=== PATIENT | male | born 1990 | race American Indian/Alaskan Native ===

== ENCOUNTER 2018-10-26 22:15 | Emergency (ER) | payer SELFPAY ==
[2018-10-26 22:35] VITALS: O2SAT 99
--- NOTE | 2018-10-26 23:50 | C.PDOC ---
History Of Present Illness 27 year old male presents to the ER with a complaint of left dental pain and left facial pain. Patient believes the tooth is infected, states he is scheduled for a removal of left broken molar on 11/13/18, he has been taking OTC pain medication but states the pain has worsened. Denies fever or tooth discharge. Time Seen by Provider: 10/26/18 22:41 Chief Complaint (Nursing): Dental Pain History Per: Patient History/Exam Limitations: no limitations Onset/Duration Of Symptoms: Days Current Symptoms Are (Timing): Still Present Recent travel outside of the [place]: No Past Medical History Reviewed: Historical Data, Nursing Documentation, Vital Signs Vital Signs: Last Vital Signs Temp 97.9 F 10/26/18 22:32 Pulse 72 10/26/18 22:32 Resp 18 10/26/18 22:32 BP 147/81 10/26/18 22:32 Pulse Ox 99 10/26/18 22:32 Family History: States: Unknown Family Hx - Social History Hx Alcohol Use: Yes Hx Substance Use: No - Immunization History Hx Tetanus Toxoid Vaccination: No Hx Influenza Vaccination: No Hx Pneumococcal Vaccination: No Review Of Systems Constitutional: Negative for: Fever ENT: Positive for: Mouth Pain. Negative for: Mouth Swelling Musculoskeletal: Positive for: Other (Left facial pain) Physical Exam - Physical Exam Appears: Non-toxic Skin: Normal Color, Warm, Dry Head: Atraumatic, Normacephalic, No Swelling (Facial) Eye(s): bilateral: Normal Inspection Nose: Normal Oral Mucosa: Moist Teeth: Tender To Palpation (left lower posterior), Other (Left posterior lower molar impacted with decaying root embedded in gum) Gingiva: Normal Appearing, Erythema (left lower posterior), No Swelling, No Abscess Throat: Normal, No Erythema, No Other (Swelling) Neck: Normal, Supple, No Other (Swelling) Neurological/Psych: Oriented x3, Normal Speech ED Course And Treatment O2 Sat by Pulse Oximetry: 99 (Room air) Pulse Ox Interpretation: Normal Progress Note: Motrin and penicillin administered. Patient is resting comfortably in the ER in no acute distress, vitals are stable, will discharge home with Rx and instructions to follow up with dentist as scheduled or return if symptoms worsen. Disposition - Disposition Referrals: Non [facility] Provider, [Primary Care Provider] - Disposition: HOME/ ROUTINE Disposition Time: 23:45 Condition: STABLE Additional Instructions: Please follow up with PMD/ Dentist as scheduled Take medications as directed Return to ER if worse Prescriptions: Ibuprofen [Motrin Tab] 800 mg PO QID #30 tab Penicillin VK [Penicillin VK Tab] 500 mg PO Q6 #28 tab Instructions: Tooth Decay, Adult (DC), Dental Pain (DC) Forms: [facility] (Irish) - Clinical Impression Clinical Impression: Dental caries - PA / COMMUNITY AFFAIRS DIRECTOR / Resident Statement MD/DO has reviewed & agrees with the documentation as recorded. - Scribe Statement The provider has reviewed the documentation as recorded by the Scribphillip Kinney All medical record entries made by the Nettie were at my direction and personally dictated by me. I have reviewed the chart and agree that the record accurately reflects my personal performance of the history, physical exam, medical decision making, and the department course for this patient. I have also personally directed, reviewed, and agree with the discharge instructions and disposition.
[2018-10-26 23:58] VITALS: BP 138/78; PULSE 84; RESP 14; TEMP 98
== END 2018-10-26 23:58 | disposition home or self-care (01) ==
LOC: C.ER 22:15 → SUPCPDRO 22:15 → C.ER 23:58
DX: K02.9 Dental caries, unspecified (principal)

== ENCOUNTER 2018-11-21 19:25 | Emergency (ER) | payer SELFPAY ==
[2018-11-21 19:31] VITALS: BP 124/81; PULSE 69; RESP 20; TEMP 98; O2SAT 99
--- NOTE | 2018-11-21 21:16 | C.PDOC ---
History Of Present Illness 28 y/o male with left lower dental pain that radiates to his ear and shoulder for months, seen for same recenty in ed and txed with pcn and motrin, did not follow [facility] dentist, returns to er for same. Time Seen by Provider: 11/21/18 19:42 Chief Complaint (Nursing): Dental Pain History Per: Patient History/Exam Limitations: no limitations Current Symptoms Are (Timing): Still Present Past Medical History Reviewed: Historical Data, Nursing Documentation, Vital Signs Vital Signs: Last Vital Signs Temp 98 F 11/21/18 19:29 Pulse 69 11/21/18 19:29 Resp 20 11/21/18 19:29 BP 124/81 11/21/18 19:29 Pulse Ox 99 11/21/18 19:29 Family History: States: Unknown Family Hx - Social History Hx Alcohol Use: Yes Hx Substance Use: No - Immunization History Hx Tetanus Toxoid Vaccination: No Hx Influenza Vaccination: No Hx Pneumococcal Vaccination: No Review Of Systems Constitutional: Negative for: Fever, Chills ENT: Positive for: Mouth Pain Physical Exam - Physical Exam Appears: Non-toxic, No Acute Distress Skin: Normal Color, Warm, Dry Head: No Swelling (facial ) Teeth: Tender To Palpation (left posterior molar ), Other (left posterior molar with crack, no adjacent swelling to gums ) Neck: Normal ROM, Supple Neurological/Psych: Normal Speech, Normal Cognition ED Course And Treatment O2 Sat by Pulse Oximetry: 99 (on RA) Pulse Ox Interpretation: Normal Medical Decision Making Medical Decision Making: Progress: Tylenol PO and Toradol IM given. Disposition Counseled Patient/Family Regarding: Diagnosis, Need For Followup - Disposition Disposition: HOME/ ROUTINE Disposition Time: 21:15 Condition: GOOD Additional Instructions: Please follow up with dentist as soon as possible for definitive care of tooth pain. Tylenol or Motrin for pain. Instructions: Tooth Decay, Adult (DC), Dental Pain (DC) Forms: [facility] (German), General Discharge Instructions - Clinical Impression Clinical Impression: Dental caries - PA / COMMERCIAL CREDIT LEAD / Resident Statement MD/DO has reviewed & agrees with the documentation as recorded. - Scribe Statement The provider has reviewed the documentation as recorded by the Scribe (Jen Richmond) All medical record entries made by the Scribe were at my direction and personally dictated by me. I have reviewed the chart and agree that the record accurately reflects my personal performance of the history, physical exam, medical decision making, and the department course for this patient. I have also personally directed, reviewed, and agree with the discharge instructions and disposition.
== END 2018-11-21 21:21 | disposition home or self-care (01) ==
LOC: C.ER 19:25
DX: K02.9 Dental caries, unspecified (principal)
CPT/HCPCS: 96372; 99283; J1885

== ENCOUNTER 2018-12-27 01:59 | Emergency (ER) | payer SELFPAY ==
[2018-12-27 02:10] VITALS: BP 126/83; PULSE 69; TEMP 98.6; O2SAT 98
--- NOTE | 2018-12-27 02:45 | C.PDOC ---
History Of Present Illness 28 year old male presents with swollen glands behind the left ear intermittently for a week. Patient states it originally occurred due to a gum infection, he was started on antibiotics with resolution but states it has now recurred. Denies tooth ache, ear ache, sore throat, or URI. Time Seen by Provider: 12/27/18 02:14 Chief Complaint (Nursing): ENT Problem History Per: Patient History/Exam Limitations: no limitations Onset/Duration Of Symptoms: Days (7), Intermittent Episodes Current Symptoms Are (Timing): Still Present Recent travel outside of the [place]: No Past Medical History Reviewed: Historical Data, Nursing Documentation, Vital Signs Vital Signs: Last Vital Signs Temp 98.6 F 12/27/18 02:09 Pulse 69 12/27/18 02:09 Resp 22 12/27/18 02:09 BP 126/83 12/27/18 02:09 Pulse Ox 98 12/27/18 02:09 Family History: States: Unknown Family Hx - Social History Hx Alcohol Use: Yes Hx Substance Use: No - Immunization History Hx Tetanus Toxoid Vaccination: No Hx Influenza Vaccination: No Hx Pneumococcal Vaccination: No Review Of Systems Constitutional: Negative for: Fever ENT: Positive for: Other (Swollen glands behind left ear). Negative for: Ear Pain, Ear Discharge, Nose Discharge, Nose Congestion, Throat Pain Respiratory: Negative for: Cough Skin: Negative for: Rash Physical Exam - Physical Exam Appears: Non-toxic Skin: Normal Color, Warm Head: Atraumatic, Normacephalic Eye(s): bilateral: Normal Inspection Ear(s): Bilateral: Normal Nose: Normal Oral Mucosa: Moist Throat: Normal, No Erythema, No Exudate Neck: Normal, No Midline Cervical Tenderness, No Paracervical Tenderness, Supple Lymphatic: Other (Two small palpable nodes behind left ear. No cord like or grape like consistency. No submandibular adenopathy. No warm fluctuant mass.) Neurological/Psych: Oriented x3, Normal Speech ED Course And Treatment O2 Sat by Pulse Oximetry: 98 (Room air) Pulse Ox Interpretation: Normal Progress Note: There is no sign of infection at this time, antibiotics not indicated at this time, nodes seem to be localized, advised patient to take motrin for pain as needed and to follow up with PMD. Disposition Counseled Patient/Family Regarding: Diagnosis, Need For Followup, Rx Given - Disposition Referrals: [facility] [Outside] Disposition: HOME/ ROUTINE Disposition Time: 02:42 Condition: GOOD Additional Instructions: Continue motrin PO Keep appointment with your PMD Return to ER if diffusly palpable glandsworse Instructions: Lymphadenitis (DC) Forms: [facility] (Zambian) - Clinical Impression Clinical Impression: Lymphadenopathy of right cervical region - PA / ASSISTANT PRODUCT MANAGER / Resident Statement MD/DO has reviewed & agrees with the documentation as recorded. - Scribe Statement The provider has reviewed the documentation as recorded by the Scribphillip Kinney All medical record entries made by the Edsonibphillip were at my direction and personally dictated by me. I have reviewed the chart and agree that the record accurately reflects my personal performance of the history, physical exam, medical decision making, and the department course for this patient. I have also personally directed, reviewed, and agree with the discharge instructions and disposition.
[2018-12-27 03:28] VITALS: RESP 18
== END 2018-12-27 03:00 | disposition home or self-care (01) ==
LOC: C.ER 01:59
DX: R59.1 Generalized enlarged lymph nodes (principal)

== ENCOUNTER 2019-02-02 01:36 | Emergency (ER) | payer SELFPAY | END 2019-02-02 02:31 | disposition home or self-care (01) | LOC: C.ER 01:36 ==